=== PATIENT | female | born 1990 | race American Indian/Alaskan Native ===

== ENCOUNTER 2016-08-28 19:15 | Emergency (ER) | payer MEDICAID, OTHER ==
[2016-08-28 19:28] VITALS: BP 107/67
[2016-08-28] MEDS ORDERED: diphenhydrAMINE 50 MG Cap PO ONE (19:45)
--- NOTE | 2016-08-28 19:50 | EDM.PDOC ---
ED HPI GENERAL MEDICAL PROBLEM - General Chief Complaint: Allergic Reaction Stated Complaint: ALLERGIC REACTION Time Seen by Provider: 08/28/16 19:45 Source of Information: Reports: Patient History Limitations: Reports: No Limitations - History of Present Illness INITIAL COMMENTS - FREE TEXT/NARRATIVE: states rash started few days ago. 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 had this problem before when she was caring for a sick horse. now she is worried about scabies. - Related Data Allergies Allergy/AdvReac Type Severity Reaction Status Date / Time No Known Allergies Allergy Verified 08/28/16 19:29 Home Meds: Home Meds . 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 ED EXAM GENERAL NO PERIP PULSE - Physical Exam Exam: See Below Exam Limited By: No Limitations General Appearance: Alert, WD/WN, Mild Distress, Other (crying & itching) Ears: Hearing Grossly Normal Throat/Mouth: Normal Voice, No Airway Compromise Head: Atraumatic Neck: Non-Tender, Full Range of Motion Respiratory/Chest: No Respiratory Distress Cardiovascular: Regular Rate, Rhythm GI/Abdominal: Soft, Non-Tender Neurological: Alert, Oriented, Normal Cognition, No Motor/Sensory Deficits, Confused Psychiatric: Tearful Skin Exam: Rash Lymphatic: No Adenopathy Course - Vital Signs Last Recorded V/S: Last Vital Signs Temp 36.7 C 08/28/16 19:28 Pulse 98 08/28/16 19:28 Resp 20 08/28/16 19:28 BP 107/67 08/28/16 19:28 Pulse Ox 99 08/28/16 19:28 - Orders/Labs/Meds Orders: Active Orders 24 hr Category Date Time Status diphenhydrAMINE [Benadryl] Med 08/28/16 19:45 Once 50 mg PO ONETIME ONE Departure - Departure Time of Disposition: 19:48 Disposition: Home, Self-Care 01 Condition: Good Clinical Impression: Rash - Discharge Information Instructions: Scabies, Adult Forms: ED Department Discharge Additional Instructions: 1) don't scratch too much 2) take benadryl 3 times daily for itchy rash 3) follow up at clinic for possible DERMATOLOGY REFERRAL rx given; elemite cream x 1 tube - My Orders Last 24 Hours: My Active Orders 08/28/16 19:45 diphenhydrAMINE [Benadryl] 50 mg PO ONETIME ONE - Assessment/Plan Last 24 Hours: My Active Orders 08/28/16 19:45 diphenhydrAMINE [Benadryl] 50 mg PO ONETIME ONE
== END 2016-08-28 20:03 | disposition home or self-care (01) ==
LOC: DL.ED 19:15
DX: R21 Rash and other nonspecific skin eruption (principal); F17.210 Nicotine dependence, cigarettes, uncomplicated
CPT/HCPCS: 99282; Q0163; 99283

== ENCOUNTER 2017-04-26 06:02 | Inpatient (IN) | payer MEDICAID, OTHER ==
[~2017-04-26 06:02] MED LIST: Acetaminophen 325 MG Tab PO PRN; Carboprost Tromethamine 250 MCG/1 ML Amp IM ONE; Citric Acid/Sodium Citrate Solution 30 ML Cup PO ONE; Methylergonovine 0.2 MG/1 ML Amp IM PRN; Misoprostol 400 MCG (4 X 100 MCG TAB) RECTAL PRN; Naloxone 2 MG/2 ML Syringe IVPUSH PRN; Ondansetron 4 MG/2 ML SDV IV PRN; Oxytocin/Normal Saline 30 UNIT/500 ML BAG IV SCH; Tranexamic Acid 1,000 MG in Sodium Chloride 0.9% 100 ML IV PRN; ceFAZolin 2 GM in Premix Bag 1 BAG IV ONE; diphenhydrAMINE 50 MG/ML SDV IVPUSH PRN; ePHEDrine 50 MG/ML SDV IVPUSH PRN
[2017-04-26] MEDS: Lactated Ringers 1,000 ML IV SCH ×4 (06:30→22:03)
[2017-04-26] MEDS ORDERED: Oxytocin/Normal Saline 60 UNIT/1,000 ML BAG ONE (07:31)
[2017-04-26] MEDS: Simethicone 80 MG Tab.Chew PO SCH ×5 (07:56→21:02)
--- NOTE | 2017-04-26 09:27 | OBOUT ---
DATE: 04/26/2017 DATE AND TIME OF NST: Date: 04/26/2017. Time: 0645 hours 0705 hours. REASON FOR NST: 1. Intrauterine at 39+ weeks. 2. Previous , requests repeat low transverse . 3. Later care. 4. Chronic hepatitis C, second . 5. History of drug abuse. NST INTERPRETATION: During this time period, heart tone baseline is approximately 120 to 130, and there are at least two 15 x 15 beat per minute accelerations, making this strip reactive and reassuring. Tocometer reveals no evidence of contractions. The patient has been feeling occasional contraction. ASSESSMENT: 1. Nonstress test, reactive and reassuring. 2. Tocometer without contractions, but the patient has been feeling some occasionally. PLAN: Please see H and P which was updated and done through [employer]. Review of systems were reviewed at that time and was felt to be noncontributory as well as records called for reviewed and supplemented by patient history. We will proceed to the OR as soon as crew is ready and available. Changes include now that the OR had some availability we were able to do her earlier in terms of time line. [facility] /[id number]
--- NOTE | 2017-04-26 11:23 | OR ---
DATE: 04/26/2017 PREOPERATIVE DIAGNOSES: 1. Intrauterine at 39 and 4/7 weeks, by 19 and 4/7 week ultrasound. 2. Previous x1, request repeat low transverse . 3. Late care. 4. Group B Streptococcus negative. 5. History of hepatitis C positive status. 6. History of drug abuse in the past. 7. Anemia of with hemoglobin 10.6 upon admission. 8. G2, P1-0-0-1. POSTOPERATIVE DIAGNOSES: 1. Intrauterine at 39 and 4/7 weeks, by 19 and 4/7 week ultrasound, delivered. 2. Previous x1, request repeat low transverse . 3. Late care. 4. Group B Streptococcus negative. 5. History of hepatitis C positive status. 6. History of drug abuse in the past. 7. Anemia of with hemoglobin 10.6 upon admission. 8. G2, P1-0-0-1. 9. Nuchal cord x1 reduced bluntly with delivery. PROCEDURE PERFORMED: NST followed by repeat low transverse . BOOM STICK WORKER: Stacie Griffith MD. ANESTHESIA: Spinal. ESTIMATED BLOOD LOSS: 650 mL. IV FLUIDS: 1200 mL. URINE OUTPUT: Clear yellow. Please see VERTICAL MILL OPERATOR notes for amounts. START: 08:45. UTERINE INCISION: 08:48. DELIVERY: 08:48. STOP: 09:00. FINDINGS: Male, scores 9 and 9, weight pending. DESCRIPTION OF PROCEDURE IN DETAIL: After proper consent was obtained, the patient was brought to the operating room, where spinal anesthetic was administered. A Brunner was placed in preop under sterile conditions. Abdomen was prepped and draped in the normal sterile fashion with the patient placed in supine position with left lateral tilt. A skin incision was then made over lower abdomen in transverse Pfannenstiel-type fashion over previous scar and this was carried down the fascia and scored in midline. Subcutaneous tissue was raked laterally with George retractor, and fascial incision was then extended in transverse fashion using curved Honeycutt's. Manohar clamps x2 were used to grasp the superior aspect of the fascia, and rectus muscles were dissected from the fascia using sharp and blunt technique. In a similar fashion, Manohar clamps x2 were used to grasp the inferior portion of the incision, and rectus and pyramidalis muscles were dissected from the fascia using sharp and blunt technique. Rectus muscles were in the midline with blunt technique. Abdominal cavity was bluntly entered in blunt technique. Incision was extended superiorly and inferiorly in blunt technique. Carlitos O large retractor was then introduced and used. Vesicouterine peritoneum was identified and incised in a transverse fashion with Metzenbaum scissors, and bladder flap was made digitally. A curvilinear incision was made on the lower uterine segment at 08:48. Uterus was then entered sharply. Clear fluid returned. The uterine incision was then extended in transverse fashion using blunt technique. vertex was then delivered through the incision followed by rest of the with minimal difficulty. Nuchal cord x1 was noted and reduced bluntly with delivery. Mouth and nares were suctioned on the patient's lap. Cord was doubly clamped cut and the was brought over to [place] Team. Then, approximately 10 mL cord blood was obtained for labs. Placenta was then delivered with gentle cord traction and fundal massage. Uterine cavity was cleared of all blood clots and debris with lap sponge. Caballero clamps were used to grasp the uterine incision. This was closed in a running locked fashion and tied at lateral margins with 1-0 Vicryl. First inspection of the uterine incision revealed hemostasis. There was some anterior portions of the uterus with abrasions with minimal bleeding, electrocautery was used for hemostasis over this area, and this area was noted to be hemostatic. Carlitos O retractor was then removed, and paracolic gutters were cleared of all blood clots and debris with lap sponge. Anterior cul-de-sac was then irrigated copiously, and all blood clots and debris removed. Second and final inspection of the uterine incision and anterior cul-de-sac as well as anterior uterus revealed hemostasis. Rectus muscles were then reapproximated in midline with [id number] stitch using 1-0 Vicryl. Subfascial tissue was found to be hemostatic. Fascia was closed in a running locked fashion, tied at lateral margin with 0 looped PDS. Subcutaneous tissue was irrigated copiously, hemostasis reassured, skin was reapproximated with medium marlene. Sterile Aquacel dressing was applied. Uterine fundus was firm and massaged at the conclusion of the case -1 below umbilicus. No immediate complications were noted. Sponge, lap, and needle counts were correct. The patient received 2 g of Ancef preoperatively, Pitocin per protocol, and will receive Toradol at the conclusion of the case for pain control. Mother and are currently stable at the time of dictation. [facility] /[id number]
[2017-04-26] MEDS ORDERED: Oxytocin/Normal Saline 30 UNIT/500 ML BAG IV ONE (11:36)
[2017-04-26] MEDS: Ketorolac 30 MG/ML SDV IVPUSH SCH ×2 (13:56→20:18)
[2017-04-26] MEDS ORDERED: fentaNYL 100 MCG/2 ML SDV IV ONE (14:27)
[2017-04-26] MEDS ORDERED: Lactated Ringers 1,000 ML IV ONE (14:27)
[2017-04-26] MEDS ORDERED: Dexamethasone 4 MG/ML SDV IV ONE (14:27)
[2017-04-26] MEDS ORDERED: Ketorolac 30 MG/ML SDV IVPUSH ONE (14:27)
[2017-04-26] MEDS ORDERED: Morphine PF 1 MG/ML Amp ITHECAL ONE (14:27)
[2017-04-26] MEDS ORDERED: Propofol 200 MG/20 ML SDV IV ONE (14:27)
[2017-04-26] MEDS: Nicotine 21 MG/24 Hr Patch TRDERM SCH (14:46)
[2017-04-26] MEDS: Acetaminophen/oxyCODONE 325-5 MG Tab PO PRN ×2 (21:11→22:46)
[2017-04-26] MEDS: Docusate Sodium 100 MG Cap PO PRN (21:11)
[2017-04-27] MEDS: Ketorolac 30 MG/ML SDV IVPUSH SCH (02:06)
[2017-04-27] MEDS: Acetaminophen/oxyCODONE 325-5 MG Tab PO PRN ×5 (03:43→19:59)
[2017-04-27] MEDS: Docusate Sodium 100 MG Cap PO PRN ×2 (08:27→20:00)
[2017-04-27] MEDS: Nicotine 21 MG/24 Hr Patch TRDERM SCH (08:33)
[2017-04-27] MEDS: Simethicone 80 MG Tab.Chew PO SCH ×4 (09:17→20:00)
--- NOTE | 2017-04-27 09:24 | PN ---
DATE: 04/27/2017 Postoperative day #1, status post repeat low transverse . SUBJECTIVE: The patient is tolerating p.o.'s, ambulating. Brunner has just been removed. She has been passing gas. No other immediate concerns are noted. Pain is under control. OBJECTIVE: Vital Signs: Temperature 99, heart rate is 84, blood pressure 102/59, and respiratory rate is 20. Lungs: Clear to auscultation bilaterally. Heart: S1 and S2. Regular rate and rhythm. Pelvic: Firm uterus -1 below umbilicus. Aquacel dressing appears dry and intact. Extremities: No peripheral edema. No calf pain. LABORATORY DATA: White cell count 14, hemoglobin 9.4 compared to predelivery hemoglobin of 10.6, and platelets of 216. ASSESSMENT: Postoperative day #1, status post repeat low transverse . Seems to be doing well. We will continue to follow clinically and closely. There is a possibility she may be discharged home tomorrow, most likely in the afternoon versus the next day, and we will follow closely at this point in time. Plans were discussed with her. She understands and agrees with the above treatment plan. [facility] /[id number]
[2017-04-27] MEDS: Ibuprofen 800 MG Tab PO PRN ×2 (12:11→20:00)
[2017-04-28] MEDS: Acetaminophen/oxyCODONE 325-5 MG Tab PO PRN ×4 (00:07→11:57)
[2017-04-28] MEDS: Ibuprofen 800 MG Tab PO PRN ×2 (03:52→11:57)
[2017-04-28] MEDS: Docusate Sodium 100 MG Cap PO PRN (07:56)
[2017-04-28 08:23] VITALS: BP 114/70
[2017-04-28] MEDS: Simethicone 80 MG Tab.Chew PO SCH (08:36)
[2017-04-28] MEDS: Nicotine 21 MG/24 Hr Patch TRDERM SCH ×2 (08:36→09:14)
--- NOTE | 2017-05-01 09:44 | DISCH ---
DATE: 04/28/2017 ADMITTING DIAGNOSES: 1. Intrauterine at 39-4/7 weeks confirmed by 19-4/7 weeks' ultrasound. 2. Previous section x1, request repeat low transverse section. 3. Late care. 4. Group B Streptococcus negative. 5. History of drug abuse with negative drug screens during this . 6. Hepatitis C positive status. 7. 2, para 1-0-0-1. 8. Maternal anemia of with hemoglobin 10.6 upon admit. DISCHARGE DIAGNOSES: 1. Intrauterine at 39-4/7 weeks confirmed by 19-4/7 weeks' ultrasound, delivered. 2. Previous section x1, request repeat low transverse section. 3. Late care. 4. Group B Streptococcus negative. 5. History of drug abuse with negative drug screens during this . 6. Hepatitis C positive status. 7. 2, para 1-0-0-1. 8. Maternal anemia of with hemoglobin 10.6 upon admit. 9. Nuchal cord x1 reduced bluntly at delivery. PROCEDURE PERFORMED: NST followed by repeat low transverse . Procedure was performed by Harsha Pyle MD HISTORY OF PRESENT ILLNESS: Please see H and P. SUMMARY OF HOSPITAL COURSE: The patient was admitted on the above date with the above diagnoses and underwent elective repeat low transverse under spinal with an EBL 650 mL yielding a male with scores of 9 and 9, weighing 7 pounds 4 ounces (3315 g). Postoperative day #1, please see progress note. Postoperative day #2, date of discharge, the patient was tolerating POs, ambulating, passing flatus, and requesting discharge. DISCHARGE EVALUATION: Vital Signs: Temperature 98.9, heart rate 96, blood pressure 114/70, and respiratory rate 16. Lungs: Clear to auscultation bilaterally. Heart: S1 and S2. Regular rate and rhythm. Abdomen: Firm uterus at the umbilicus. Aquacel dressing is dry and intact. Extremities: Trace pedal edema. No calf pain. LABORATORY DATA: Postop day #1, hemoglobin was 9.4 compared to predelivery hemoglobin 10.6. CONDITION ON DISCHARGE COMPARED TO CONDITION ON ADMISSION: Improved. DISCHARGE INSTRUCTIONS: 1. Diet. As tolerated. 2. Activity: No lifting more than 20 pounds, no sit-ups, straining, and pelvic rest for the next 6 weeks with immediate return to fertility discussed with the patient. 3. ReasonS to return or go to the emergency room were discussed with the patient in detail including, but not limited to, temperature greater than 100.4, foul-smelling discharge, red hot tender breasts, or increased vaginal bleeding. DISCHARGE MEDICATIONS: 1. [id number] Tylenol or ibuprofen for pain. 2. Iron sulfate 325 mg b.i.d. x6 weeks. 3. vitamins x6 weeks. 4. Percocet 5/325 mg 1 to 2 q.6 hours p.r.n., #30, no refills. Discussed the use of this medications, adverse and wanted effects, as well as precautions with driving. FOLLOWUP: Follow up on 05/01/2017, in the clinic for staple removal as well as with her baby. I did discuss in the interim the reasons to return or go to the emergency room in regard to her baby. She understands and agrees with the above treatment plan. [facility] /[id number]
== END 2017-04-28 12:38 | disposition home or self-care (01) | DRG 765 ==
LOC: DL.MS 06:02 → EEVIPCON 06:02 → DL.MS 08:48 → OBSVTOIN 08:48
PROVIDERS: ADMIT Family Medicine; ATTEND Family Medicine
PROC: 4A0HXCZ Measurement of Products of Conception, Cardiac Rate, External Approach (ICD-10-PCS; principal; 2017-04-26)
PROC: 10D00Z1 Extraction of Products of Conception, Low, Open Approach (ICD-10-PCS; 2017-04-26)
DX: O98.413 Viral hepatitis complicating pregnancy, third trimester (principal); O34.211 Maternal care for low transverse scar from previous cesarean delivery; O98.42 Viral hepatitis complicating childbirth; B19.20 Unspecified viral hepatitis C without hepatic coma; O99.02 Anemia complicating childbirth; O69.1XX0 Labor and delivery complicated by cord around neck, with compression, not applicable or unspecified; O09.33 Supervision of pregnancy with insufficient antenatal care, third trimester; Z37.0 Single live birth; Z3A.39 39 weeks gestation of pregnancy
CPT/HCPCS: 01961; 36415; 80305; 85027; 86850; 86900; 86901; A9270-GY; J0690; J1100; J1200; J1885; J2274; J2590; J2704; J3010; J7120

== ENCOUNTER 2017-09-17 08:53 | Emergency (ER) | payer MEDICAID ==
--- NOTE | 2017-09-17 09:27 | EDM.PDOC ---
"ED HPI GENERAL MEDICAL PROBLEM - General Chief Complaint: Trauma Stated Complaint: [id number] FELL AND HURT RIBS AND LEFT LEG Time Seen by Provider: 09/17/17 09:27 Source of Information: Reports: Patient, Old Records, RN, RN Notes Reviewed History Limitations: Reports: No Limitations - History of Present Illness INITIAL COMMENTS - FREE TEXT/NARRATIVE: Pt arrives from home by POV with c/o head injury, and left upper chest wall pain , with multiple bruises, and left knee injury sustained yesterday morning at approx. 8:00AM when she was thrown off of her horse. Pt states she was knocked unconscious for about a minute or so, and was confused and drowsy afterward. Her family helped her into the house and into bed and she slept through until this morning. Pt admits to neck pain, headache, and nausea. Pt also reports that she has had Sx's of UTI for several days. Onset: Sudden Onset Date: 09/16/17 Duration: Constant Location: Reports: Head, Neck, Chest, Abdomen, Back, Lower Extremity, Left Quality: Reports: Ache, Throbbing Severity: Severe Improves with: Reports: Immobilization, Rest Worsens with: Reports: Breathing, Movement Associated Symptoms: Reports: No Other Symptoms - Related Data Allergies Allergy/AdvReac Type Severity Reaction Status Date / Time No Known Allergies Allergy Verified 08/28/16 19:29 Home Meds: Home Meds . [No Known Home Meds] 08/28/16 [History] Past Medical History Respiratory History: Reports: Asthma Gastrointestinal History: Reports: GERD Genitourinary History: Reports: UTI, Recurrent [employer] History: Reports: Polycystic Ovaries, Musculoskeletal History: Reports: Back Pain, Chronic Psychiatric History: Reports: Depression, Suicide Attempt Hematologic History: Reports: Anemia, Other (See Below) Other Hematologic History: + hep C - Infectious Disease History Infectious Disease History: Reports: Hepatitis C - Past Surgical History HEENT Surgical History: Reports: Oral Surgery Female Surgical History: Reports: Section Social & Family History - Family History Family Medical History: Noncontributory - Tobacco Use Smoking Status *Q: Former Smoker - Caffeine Use Caffeine Use: Reports: Soda - Alcohol Use Alcohol Use History: No - Recreational Drug Use Recreational Drug Use: Yes Drug Use in Last 12 Months: Yes Recreational Drug Use Frequency: Patient Refuses To Answer - Living Situation & Occupation Living situation: Reports: with Family ED ROS GENERAL - Review of Systems Review Of Systems: ROS reveals no pertinent complaints other than HPI. ED EXAM, GENERAL - Physical Exam Exam: See Below Exam Limited By: No Limitations General Appearance: Alert, WD/WN, No Apparent Distress Eye Exam: Bilateral Eye: EOMI, Normal Fundi, Normal Inspection, PERRL Ears: Normal External Exam, Normal Canal, Hearing Grossly Normal, Normal TMs, Other (no hemotympanum) Nose: Normal Inspection, Normal Mucosa, No Blood Throat/Mouth: Normal Inspection, Normal Lips, Normal Teeth, Normal Gums, Normal Oropharynx, Normal Voice, No Airway Compromise Neck: Limited Range of Motion (due to pain after c-collar removed), Tender Lateral (left base), Other (C-collar placed by fire lookout. C-spine cleared by CT scan. C-collar removed by me at 1145HRS.). No: Carotid Bruit, Lymphadenopathy ( L), Lymphadenopathy (R) Respiratory/Chest: No Respiratory Distress, Lungs Clear, Normal Breath Sounds, No Accessory Muscle Use, Other (tender to palpation at left upper anterior chest wall) Cardiovascular: Normal Peripheral Pulses, Regular Rate, Rhythm, No Edema, No Gallop, No JVD, No Murmur, No Rub Peripheral Pulses: 3+: Radial (L), Radial (R), Posterior Tibial (L), Posterior Tibial (R), Dorsalis Pedis (L), Dorsalis Pedis (R) GI/Abdominal: Normal Bowel Sounds, Soft, No Distention, No Abnormal Bruit, No Mass, Pelvis Stable, Tender (LUQ abdomen, no peritoneal signs). No: Guarding, Rigid, Rebound (Female) Exam: Deferred Rectal (Female) Exam: Deferred Back Exam: Decreased Range of Motion, Muscle Spasm (T/L spine regions), Paraspinal Tenderness. No: CVA Tenderness (L), CVA Tenderness (R), Vertebral Tenderness Extremities: No Pedal Edema, Normal Capillary Refill, Joint Swelling (left knee with bruising and swelling, decreased ROM due to pain) Neurological: Alert, Oriented, CN II-XII Intact, Normal Cognition, No Motor/ Sensory Deficits Psychiatric: Normal Affect, Normal Mood Skin Exam: Warm, Dry, No Rash, Other (multiple scattered bruises to B/L upper and lower extremities) Course - Vital Signs Last Recorded V/S: Last Vital Signs Temp 37.3 C 09/17/17 09:28 Pulse 99 09/17/17 09:28 Resp 18 09/17/17 09:28 BP 125/83 09/17/17 09:28 Pulse Ox 97 09/17/17 09:28 - Orders/Labs/Meds Orders: Active Orders 24 hr Category Date Time Status Peripheral IV Care [RC] . DIRECTED Care 09/17/17 09:42 Active CHLAMYDIA AND GONORRHEA BY TMA Routine Lab 09/17/17 10:20 Received CULTURE URINE [RM] Stat Lab 09/17/17 10:20 Received DRUG SCREEN URINE BIORAD [URCHEM] Stat Lab 09/17/17 10:20 Ordered HCG QUALITATIVE,URINE [URCHEM] Stat Lab 09/17/17 10:20 Ordered UA W/MICROSCOPIC [URIN] Stat Lab 09/17/17 10:20 Ordered Sodium Chloride 0.9% [Saline Flush] Med 09/17/17 09:41 Active 10 ml FLUSH ASDIRECTED PRN Peripheral IV Insertion Adult [OM.PC] Stat Oth 09/17/17 09:42 Ordered Medication Orders Sodium Chloride (Saline Flush) 10 ml FLUSH ASDIRECTED PRN PRN Reason: Keep Vein Open Last Admin: 09/17/17 11:40 Dose: 10 ml Labs: Laboratory Tests 09/17/17 09/17/17 09/17/17 Range/Units 09:49 09:49 10:20 WBC 4.8 L (5.0-10.0) 10^3/uL RBC 4.51 (4.2-5.4) 10^6/uL Hgb 13.8 D (12.0-16.0) g/dL Hct 42.8 (37.0-47.0) % MCV 94.9 D (80-100) fL MCH 30.6 (27.0-34.0) pg MCHC 32.2 L (33.0-35.0) g/dL Plt Count 122 L D (150-450) 10^3/uL Neut % (Auto) 48.0 (42.2-75.2) % Lymph % (Auto) 29.6 (20.5-50.1) % Mclennan % (Auto) 19.5 H (2-8) % Eos % (Auto) 2.7 (1.0-3.0) % Baso % (Auto) 0.2 (0.0-1.0) % Sodium 139 (135-145) mmol/L Potassium 3.6 (3.6-5.0) mmol/L Chloride 102 (101-111) mmol/L Carbon Dioxide 28.0 (21.0-31.0) mmol/L Anion Gap 12.6 BUN 12 (7-18) mg/dL Creatinine 0.7 (0.6-1.3) mg/dL Est Cr Clr Drug Dosing 99.41 mL/min Estimated GFR (MDRD) > 60 BUN/Creatinine Ratio 17.14 Glucose 93 (74-105) mg/dL Calcium 8.9 (8.4-10.2) mg/dl Total Bilirubin 1.2 H (0.2-1.0) mg/dL AST 82 H (10-42) IU/L ALT 95 H (10-60) IU/L Alkaline Phosphatase 55 (42-121) IU/L Total Protein 7.7 (6.7-8.2) g/dl Albumin 3.9 (3.2-5.5) g/dl Globulin 3.8 Albumin/Globulin Ratio 1.03 Amylase 36 (28-100) U/L Lipase 25 (22-51) U/L Urine Color Dark yellow (YELLOW) Urine Appearance Cloudy (CLEAR) Urine pH 6.0 (5.0-9.0) Ur Specific [place] >= 1.030 (1.005-1.030) Urine Protein 100 H (NEGATIVE) Urine Glucose (UA) Negative (NEGATIVE) Urine Ketones 15 H (NEGATIVE) Urine Occult Blood Negative (NEGATIVE) Urine Nitrite Positive H (NEGATIVE) Urine Bilirubin Small H (NEGATIVE) Urine Urobilinogen 1.0 (0.2-1.0) mg/dL Ur Leukocyte Esterase Trace H (NEGATIVE) Urine RBC 0-5 /HPF Urine WBC 10-20 H (0-5/HPF) /HPF Ur Epithelial Cells Few /HPF Amorphous Sediment Few (0/HPF) /HPF Urine Bacteria Many H (0-FEW/HPF) /HPF Urine Mucus Few H /LPF Urine HCG, Qual Urine Opiates Screen (NEGATIVE) Ur Oxycodone Screen (NEGATIVE) Urine Methadone Screen (NEGATIVE) Ur Barbiturates Screen (NEGATIVE) U Tricyclic Antidepress (NEGATIVE) Ur Phencyclidine Scrn (NEGATIVE) Ur Amphetamine Screen (NEGATIVE) U Methamphetamines Scrn (NEGATIVE) Urine MDMA Screen (NEGATIVE) U Benzodiazepines Scrn (NEGATIVE) Urine Cocaine Screen (NEGATIVE) U Marijuana (THC) Screen (NEGATIVE) Ethyl Alcohol < 5 mg/dL 09/17/17 09/17/17 Range/Units 10:20 10:20 WBC (5.0-10.0) 10^3/uL RBC (4.2-5.4) 10^6/uL Hgb (12.0-16.0) g/dL Hct (37.0-47.0) % MCV (80-100) fL MCH (27.0-34.0) pg MCHC (33.0-35.0) g/dL Plt Count (150-450) 10^3/uL Neut % (Auto) (42.2-75.2) % Lymph % (Auto) (20.5-50.1) % Mclennan % (Auto) (2-8) % Eos % (Auto) (1.0-3.0) % Baso % (Auto) (0.0-1.0) % Sodium (135-145) mmol/L Potassium (3.6-5.0) mmol/L Chloride (101-111) mmol/L Carbon Dioxide (21.0-31.0) mmol/L Anion Gap BUN (7-18) mg/dL Creatinine (0.6-1.3) mg/dL Est Cr Clr Drug Dosing mL/min Estimated GFR (MDRD) BUN/Creatinine Ratio Glucose (74-105) mg/dL Calcium (8.4-10.2) mg/dl Total Bilirubin (0.2-1.0) mg/dL AST (10-42) IU/L ALT (10-60) IU/L Alkaline Phosphatase (42-121) IU/L Total Protein (6.7-8.2) g/dl Albumin (3.2-5.5) g/dl Globulin Albumin/Globulin Ratio Amylase (28-100) U/L Lipase (22-51) U/L Urine Color (YELLOW) Urine Appearance (CLEAR) Urine pH (5.0-9.0) Ur Specific [place] (1.005-1.030) Urine Protein (NEGATIVE) Urine Glucose (UA) (NEGATIVE) Urine Ketones (NEGATIVE) Urine Occult Blood (NEGATIVE) Urine Nitrite (NEGATIVE) Urine Bilirubin (NEGATIVE) Urine Urobilinogen (0.2-1.0) mg/dL Ur Leukocyte Esterase (NEGATIVE) Urine RBC /HPF Urine WBC (0-5/HPF) /HPF Ur Epithelial Cells /HPF Amorphous Sediment (0/HPF) /HPF Urine Bacteria (0-FEW/HPF) /HPF Urine Mucus /LPF Urine HCG, Qual Negative Urine Opiates Screen Negative (NEGATIVE) Ur Oxycodone Screen Negative (NEGATIVE) Urine Methadone Screen Negative (NEGATIVE) Ur Barbiturates Screen Negative (NEGATIVE) U Tricyclic Antidepress Negative (NEGATIVE) Ur Phencyclidine Scrn Negative (NEGATIVE) Ur Amphetamine Screen Positive H (NEGATIVE) U Methamphetamines Scrn Positive H (NEGATIVE) Urine MDMA Screen Positive H (NEGATIVE) U Benzodiazepines Scrn Negative (NEGATIVE) Urine Cocaine Screen Negative (NEGATIVE) U Marijuana (THC) Screen Positive H (NEGATIVE) Ethyl Alcohol mg/dL Meds: Medications Generic Name Dose Route Start Last Admin Trade Name Freq PRN Reason Stop Dose Admin Sodium Chloride 10 ml 09/17/17 09:41 09/17/17 11:40 Saline Flush FLUSH 10 ml ASDIRECTED PRN Administration Keep Vein Open Discontinued Medications Generic Name Dose Route Start Last Admin Trade Name Freq PRN Reason Stop Dose Admin Bacitracin 1 dose 09/17/17 09:43 09/17/17 10:07 Bacitracin Oint 1 Gm TOP 09/17/17 09:44 1 dose ONETIME ONE Administration Ceftriaxone Sodium 1 gm 09/17/17 11:41 09/17/17 11:55 Rocephin IVPUSH 09/17/17 11:42 1 gm ONETIME ONE Administration Hydromorphone HCl 1 mg 09/17/17 09:43 09/17/17 10:03 Dilaudid IVPUSH 09/17/17 09:44 1 mg ONETIME ONE Administration Sodium Chloride 1,000 mls @ 999 mls/hr 09/17/17 09:42 09/17/17 10:00 Normal Saline IV 09/17/17 10:42 999 mls/hr .BOLUS ONE Administration Iopamidol 100 ml 09/17/17 09:42 09/17/17 11:09 Isovue-300 (61%) IVPUSH 09/17/17 09:43 100 ml ONETIME ONE Administration Ondansetron HCl 4 mg 09/17/17 09:42 09/17/17 10:05 Zofran IV 09/17/17 09:43 4 mg ONETIME ONE Administration - Radiology Interpretation Free Text/Narrative:: [facility] Final Radiology Report Call: [phone] assistance Online chat: [email or web address] Name: MAURICIO MEDINA Age: 27Years F Date: 09/17/2017 SSN: -- : 1990 Study: XR KNEE 3 VIEWS Requesting Physician: LEONARD PIÑA Images: 3 Addl Studies: Provided Clinical History: Contrast: Contrast Medium: Contrast Amount: Contrast Method: CONFIDENTIALITY STATEMENT This report is intended only for use by the referring physician, and only in accordance with law. If you received this in error, call [phone]. Page 1 of 1 EXAM: XR Left Knee, 3 views EXAM DATE/TIME: 09/17/2017 10:29 AM CLINICAL HISTORY: The patient is 27 years old and is female; Injury or trauma; Injury Thrown from horse; Initial encounter; Blunt trauma; Knee; Left TECHNIQUE: Three views of the left knee. COMPARISON: No relevant prior studies available. FINDINGS: Bones/joints: Unremarkable. No acute fracture. No dislocation. Soft tissues: There is mild soft tissue swelling anteriorly. The suprapatellar soft tissues appear grossly unremarkable. IMPRESSION: Mild anterior soft tissue swelling without acute fracture or dislocation identified. Thank you for allowing us to participate in the care of your patient. Dictated and Authenticated by: Jasper Jackson MD 09/17/2017 11:13 AM [facility] Final Radiology Report Call: [phone] assistance Online chat: [email or web address] Name: MAURICIO MEDINA Age: 27Years F Date: 09/17/2017 SSN: -- : 1990 Study: CT SPINE CERVICAL WO Requesting Physician: LEONARD PIÑA Images: 203 Addl Studies: Provided Clinical History: Contrast: Without Contrast Medium: Contrast Amount: Contrast Method: Page 1 of 2 EXAM: CT Cervical Spine Without Intravenous Contrast EXAM DATE/TIME: 09/17/2017 10:11 AM CLINICAL HISTORY: The patient is 27 years old and is female; Injury or trauma; Injury Thrown from horse; Initial encounter; Blunt trauma TECHNIQUE: Axial computed tomography images of the cervical spine without intravenous contrast. All CT scans at this facility use at least one of these dose optimization techniques: automated exposure control; mA and/or kV adjustment per patient size (includes targeted exams where dose is matched to clinical indication); or iterative reconstruction. Coronal and sagittal reformatted images were created and reviewed. COMPARISON: No relevant prior studies available. FINDINGS: Vertebral body heights are intact. Alignment is maintained. No acute fracture of the cervical spine is identified. There is a nondisplaced fracture of the left first rib medially. The prevertebral soft tissues are not significantly swollen. The visualized lung apices are essentially clear, and no apical pneumothorax is identified. No significant posterior disc displacements are evident. CT is not optimal for the evaluation of the discs, neural foramina or spinal canal or cord. IMPRESSION: MAURICIO MEDINA | Final Radiology Report CONFIDENTIALITY STATEMENT This report is intended only for use by the referring physician, and only in accordance with law. If you received this in error, call [phone]. Page 2 of 2 1. No acute fracture or dislocation of the cervical spine identified. 2. Nondisplaced fracture of the left first rib medially. Thank you for allowing us to participate in the care of your patient. Dictated and Authenticated by: Jasper Jackson MD 09/17/2017 11:16 AM [facility] Final Radiology Report Call: [phone] assistance Online chat: [email or web address] Name: MAURICIO MEDINA Age: 27Years F Date: 09/17/2017 SSN: -- : 1990 Study: CT HEAD WO Requesting Physician: LEONARD PIÑA Images: 66 Addl Studies: Provided Clinical History: Contrast: Without Contrast Medium: Contrast Amount: Contrast Method: Page 1 of 2 EXAM: CT Head Without Intravenous Contrast EXAM DATE/TIME: 09/17/2017 10:11 AM CLINICAL HISTORY: The patient is 27 years old and is female; Injury or trauma; Injury Thrown from horse TECHNIQUE: Axial computed tomography images of the head/brain without intravenous contrast. All CT scans at this facility use at least one of these dose optimization techniques: automated exposure control; mA and/or kV adjustment per patient size (includes targeted exams where dose is matched to clinical indication); or iterative reconstruction. COMPARISON: No relevant prior studies available. FINDINGS: Brain: Unremarkable. No hemorrhage. No significant white matter disease. No edema. Ventricles: Unremarkable. No ventriculomegaly. Bones/joints: Unremarkable. No acute fracture. Soft tissues: Unremarkable. Sinuses: Unremarkable as visualized. No acute sinusitis. Mastoid air cells: Unremarkable as visualized. No mastoid effusion. IMPRESSION: No CT evidence for acute intracranial abnormality. Thank you for allowing us to participate in the care of your patient. MAURICIO MEDINA | Final Radiology Report CONFIDENTIALITY STATEMENT This report is intended only for use by the referring physician, and only in accordance with law. If you received this in error, call [phone]. Page 2 of 2 Dictated and Authenticated by: Jasper Jackson MD 09/17/2017 11:18 AM [facility] Final Radiology Report Call: [phone] assistance Online chat: [email or web address] Name: MAURICIO MEDINA Age: 27Years F Date: 09/17/2017 SSN: -- : 1990 Study: CT CHEST W Requesting Physician: LEONARD PIÑA Images: 248 Addl Studies: [id number] - CT ABDOMEN/PELVIS W (1) Provided Clinical History: Contrast: With Contrast Medium: Isovue Contrast Amount: 100 mL Contrast Method: LAC Page 1 of 2 EXAM: CT Chest With Intravenous Contrast CT Abdomen and Pelvis With Intravenous Contrast EXAM DATE/TIME: 09/17/2017 10:08 AM CLINICAL HISTORY: The patient is 27 years old and is female; Injury or trauma; Injury Thrown from horse; Initial encounter; Blunt; Generalized; Blunt trauma (contusions or hematomas) TECHNIQUE: Axial computed tomography images of the chest, abdomen and pelvis with intravenous contrast. All CT scans at this facility use at least one of these dose optimization techniques : automated exposure control; mA and/or kV adjustment per patient size (includes targeted exams where dose is matched to clinical indication); or iterative reconstruction. Coronal and sagittal reformatted images were created and reviewed. CONTRAST: 100 mL of Isovue administered intravenously. COMPARISON: No relevant prior studies available. FINDINGS: CHEST: Lungs: There is minor dependent atelectasis bilaterally. The lungs are otherwise clear. Pleural space: Unremarkable. No significant effusion. No pneumothorax. Heart: Unremarkable. No cardiomegaly. No significant pericardial effusion. Mediastinum: No mediastinal hematoma is identified. MAURICIO MEDINA | Final Radiology Report CONFIDENTIALITY STATEMENT This report is intended only for use by the referring physician, and only in accordance with law. If you received this in error, call [phone]. Page 2 of 2 ABDOMEN: Liver: The liver is fatty in density. It appears otherwise unremarkable. Gallbladder and bile ducts: No gallstones are evident, but ultrasound would be more sensitive. No ductal dilation. Pancreas: Unremarkable. No ductal dilation. No mass. Spleen: Unremarkable. No splenomegaly. Adrenals: Unremarkable. No mass. Kidneys and ureters: The left renal vein is noted to be retroaortic. No hydronephrosis. No solid mass. Stomach and bowel: Neither the stomach nor the small bowel are significantly distended or grossly thickwalled. The large bowel is grossly unremarkable in appearance. PELVIS: Appendix: No findings to suggest acute appendicitis. Bladder: Unremarkable. No mass. Reproductive: No gross adnexal abnormality is apparent, but ultrasound would be more appropriate in this regard. CHEST, ABDOMEN and PELVIS: Intraperitoneal space: Unremarkable. No significant fluid collection. No free air. Bones/joints: There is a nondisplaced fracture of the left first rib medially. No other fracture of the visualized skeleton is identified. No dislocation. Soft tissues: Unremarkable. Vasculature: The thoracic aorta is nonaneurysmal. The abdominal aorta is nonaneurysmal. Lymph nodes: Unremarkable. No enlarged lymph nodes. IMPRESSION: 1. Nondisplaced fracture of the left first rib medially. No other evidence for acute intrathoracic, abdominal or pelvic injury. 2. Fatty liver. Thank you for allowing us to participate in the care of your patient. Dictated and Authenticated by: Jasper Jackson MD 09/17/2017 11:[address] Results Date: 09/17/17 Departure - Departure Time of Disposition: 11:32 Disposition: Home, Self-Care 01 Condition: Good Clinical Impression: Contusion, multiple sites, Polysubstance abuse, Fatty liver disease, nonalcoholic Fracture of one rib of left side Qualifiers: Encounter type: initial encounter Fracture type: closed Qualified Code(s): S22.32XA - Fracture of one rib, left side, initial encounter for closed fracture UTI (urinary tract infection) Qualifiers: Urinary tract infection type: site unspecified Hematuria presence: without hematuria Qualified Code(s): N39.0 - Urinary tract infection, site not specified Concussion with loss of consciousness <= 30 min Qualifiers: Encounter type: initial encounter Qualified Code(s): S06.0X1A - Concussion with loss of consciousness of 30 minutes or less, initial encounter - Discharge Information Instructions: Concussion, Adult, [id number], Urinary Tract Infection, Adult, [id number], Contusion, [id number], Rib Fracture, [id number], Nonalcoholic Fatty Liver Disease Diet Forms: ED Department Discharge Additional Instructions: Rx: Cipro 500mg Rx: Bactroban Ointment 2% Rx: Cyclobenzaprine 10mg *Do not drive while under the influence of this medication. May use over the counter Ibuprofen (Advil/Motrin) 200mg: Three tablets by mouth every 6 hours as needed for pain. Take with food. Concussion activity restrictions for 3 weeks: no rough, bouncing, or high impact activities, and no drug or alcohol use. Follow up in clinic in 2 to 3 days for recheck. - My Orders Last 24 Hours: My Active Orders 09/17/17 09:41 Sodium Chloride 0.9% [Saline Flush] 10 ml FLUSH ASDIRECTED PRN 09/17/17 09:42 Peripheral IV Care [RC] . DIRECTED Peripheral IV Insertion Adult [OM.PC] Stat 09/17/17 10:20 CHLAMYDIA AND GONORRHEA BY TMA Routine CULTURE URINE [RM] Stat DRUG SCREEN URINE BIORAD [URCHEM] Stat HCG QUALITATIVE,URINE [URCHEM] Stat UA W/MICROSCOPIC [URIN] Stat - Assessment/Plan Last 24 Hours: My Active Orders 09/17/17 09:41 Sodium Chloride 0.9% [Saline Flush] 10 ml FLUSH ASDIRECTED PRN 09/17/17 09:42 Peripheral IV Care [RC] . DIRECTED Peripheral IV Insertion Adult [OM.PC] Stat 09/17/17 10:20 CHLAMYDIA AND GONORRHEA BY TMA Routine CULTURE URINE [RM] Stat DRUG SCREEN URINE BIORAD [URCHEM] Stat HCG QUALITATIVE,URINE [URCHEM] Stat UA W/MICROSCOPIC [URIN] Stat"
[2017-09-17 09:38] VITALS: BP 125/83
[2017-09-17] MEDS ORDERED: Sodium Chloride 0.9% 10 ML Syringe FLUSH PRN (09:41)
[2017-09-17] MEDS ORDERED: Sodium Chloride 0.9% 1,000 ML IV ONE (09:42)
[2017-09-17] MEDS ORDERED: Ondansetron 4 MG/2 ML SDV IV ONE (09:42)
[2017-09-17] MEDS ORDERED: Iopamidol 612 MG/ML 100 ML Bottle IVPUSH ONE (09:42)
[2017-09-17] MEDS ORDERED: Bacitracin Oint 1 GM U/D Packet TOP ONE (09:43)
[2017-09-17] MEDS ORDERED: HYDROmorphone 0.5 MG/0.5 ML Syringe IVPUSH ONE (09:43)
[2017-09-17 10:19] LABS: ANION GAP 12.6; CHLORIDE,CL 102 mmol/L (101-111); SODIUM,NA 139 mmol/L (135-145)
[2017-09-17] MEDS ORDERED: cefTRIAXone 1 GM Vial IVPUSH ONE (11:41)
== END 2017-09-17 12:16 | disposition home or self-care (01) ==
LOC: DL.ED 08:53
DX: S06.0X1A Concussion with loss of consciousness of 30 minutes or less, initial encounter (principal); S22.32XA Fracture of one rib, left side, initial encounter for closed fracture; S80.02XA Contusion of left knee, initial encounter; N39.0 Urinary tract infection, site not specified; F19.10 Other psychoactive substance abuse, uncomplicated; K76.0 Fatty (change of) liver, not elsewhere classified; Z87.891 Personal history of nicotine dependence; V80.010A Animal-rider injured by fall from or being thrown from horse in noncollision accident, initial encounter
CPT/HCPCS: 36415; 70450; 71260; 72125; 73562; 74177; 80053; 80305; 81001; 81025; 82150; 83690; 85025; 87086; 87088; 87186; 87491; 87591; 96361; 96374; 96375; 99285; G0480; J0696; J1170; J2405; J7030; J7050; Q9967

== ENCOUNTER 2018-06-13 11:23 | Inpatient (IN) | payer SELFPAY ==
[2018-06-13 11:34] VITALS: BP 87/45
[2018-06-13] MEDS ORDERED: Naloxone 2 MG/2 ML Syringe ONE (11:45)
[2018-06-13] MEDS: Lactated Ringers 1,000 ML IV ONE ×2 (12:00→12:31)
[2018-06-13] MEDS ORDERED: Lactated Ringers 1,000 ML IV ONE ×2 (12:15→16:30)
[2018-06-13] MEDS ORDERED: Oxytocin/Normal Saline 60 UNIT/1,000 ML BAG ONE (12:18)
[2018-06-13] MEDS ORDERED: diphenhydrAMINE 50 MG/ML SDV IVPUSH PRN (12:29)
[2018-06-13] MEDS ORDERED: Docusate Sodium 100 MG Cap PO PRN (12:29)
[2018-06-13] MEDS ORDERED: Ondansetron 4 MG/2 ML SDV IV PRN (12:29)
[2018-06-13] MEDS ORDERED: Tranexamic Acid 1,000 MG in Sodium Chloride 0.9% 100 ML IV PRN (12:29)
[2018-06-13] MEDS ORDERED: Acetaminophen 325 MG Tab PO PRN (12:29)
[2018-06-13] MEDS ORDERED: Carboprost Tromethamine 250 MCG/1 ML Amp IM ONE (12:29)
[2018-06-13] MEDS ORDERED: ePHEDrine 50 MG/ML SDV IVPUSH PRN (12:29)
[2018-06-13] MEDS ORDERED: Ibuprofen 800 MG Tab PO PRN (12:29)
[2018-06-13] MEDS ORDERED: Methylergonovine 0.2 MG/1 ML Amp IM PRN (12:29)
[2018-06-13] MEDS ORDERED: Naloxone 2 MG/2 ML Syringe IVPUSH PRN (12:29)
[2018-06-13] MEDS ORDERED: Acetaminophen/oxyCODONE 325-5 MG Tab PO PRN ×2 (12:29)
[2018-06-13] MEDS ORDERED: ceFAZolin 2 GM in Premix Bag 1 BAG IV ONE (12:29)
[2018-06-13] MEDS ORDERED: Misoprostol 400 MCG (4 X 100 MCG TAB) RECTAL PRN (12:29)
[2018-06-13] MEDS ORDERED: Ketorolac 30 MG/ML SDV IVPUSH SCH (12:30)
[2018-06-13] MEDS ORDERED: Oxytocin/Normal Saline 30 UNIT/500 ML BAG IV SCH (12:30)
[2018-06-13] MEDS ORDERED: Lactated Ringers 1,000 ML IV SCH (12:30)
[2018-06-13] MEDS ORDERED: Betamethasone Acetate/Betamethasone Sod Phosphate 30 MG/5 ML MDV IM ONE (12:33)
[2018-06-13] MEDS ORDERED: Citric Acid/Sodium Citrate Solution 30 ML Cup PO ONE (12:33)
--- NOTE | 2018-06-13 12:49 | EDM.PDOC ---
ED HPI GENERAL MEDICAL PROBLEM - General Chief Complaint: Syncope Stated Complaint: SICK-OB Time Seen by Provider: 06/13/18 11:33 Source of Information: Reports: Patient, Provider (Dr. Pyle), RN, RN Notes Reviewed History Limitations: Reports: No Limitations - History of Present Illness INITIAL COMMENTS - FREE TEXT/NARRATIVE: Pt to ER from the clinic. Presented to the clinic today for first OB check. She has had no care prior to this. After having lab, the patient became very pale, diaphoretic, light headed. Patient brought to the ER for evaluation. Upon arrival it took 4 nurses to transfer the patient to the bed. Patient c/o back pain intermittently. States LMP was October. Pt admits to using meth 2 days ago and taking a "pain pill" yesterday. 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: Reports: Polycystic Ovaries, Musculoskeletal History: Reports: Back Pain, Chronic Neurological History: Reports: None Psychiatric History: Reports: Depression, Suicide Attempt Endocrine/Metabolic History: Reports: None Hematologic History: Reports: Anemia, Other (See Below) Other Hematologic History: + hep C Immunologic History: Reports: HIV Oncologic (Cancer) History: Reports: None Dermatologic History: Reports: Other (See Below) Other Dermatologic History: track hills all over from IV drug use - Infectious Disease History Infectious Disease History: Reports: Hepatitis C - Past Surgical History Head Surgeries/Procedures: Reports: None HEENT Surgical History: Reports: Oral Surgery Female Surgical History: Reports: Section Social & Family History - Family History Family Medical History: Noncontributory - Tobacco Use Smoking Status *Q: Current Every Day Smoker Years of Tobacco use: 10 Packs/Tins Daily: 0.5 Used Tobacco, but Quit: No - Caffeine Use Caffeine Use: Reports: Coffee, Soda - Recreational Drug Use Recreational Drug Use: Yes Drug Use in Last 12 Months: Yes Recreational Drug Type: Reports: Methamphetamine, Other (see below) Other Recreational Drug Type: hydrocodone - Living Situation & Occupation Living situation: Reports: with Family ED ROS GENERAL - Review of Systems Review Of Systems: ROS reveals no pertinent complaints other than HPI. ED EXAM - Physical Exam Exam: See Below Exam Limited By: No Limitations General Appearance: Lethargic, Moderate Distress Eye Exam: Bilateral Eye: EOMI, Normal Inspection Ears: Normal External Exam, Hearing Grossly Normal Nose: Normal Inspection Throat/Mouth: Normal Inspection, Normal Voice, No Airway Compromise Head: Atraumatic, Normocephalic Neck: Normal Inspection, Supple, Non-Tender, Full Range of Motion Respiratory/Chest: No Respiratory Distress, Lungs Clear, Normal Breath Sounds, No Accessory Muscle Use, Chest Non-Tender Cardiovascular: Normal Peripheral Pulses, Regular Rate, Rhythm, No Edema, No Gallop, No JVD, No Murmur, No Rub Rectal Exam: Deferred Back Exam: Normal Inspection, Full Range of Motion Extremities: Normal Inspection, Normal Range of Motion, Non-Tender, No Pedal Edema, Normal Capillary Refill Neurological: Alert, Oriented, CN II-XII Intact, Normal Cognition, Normal Gait, Normal Reflexes, No Motor/Sensory Deficits Psychiatric: Anxious, Tearful Skin Exam: Warm, Dry, Intact, No Rash, Pallor Lymphatic: No Adenopathy Course - Vital Signs Last Recorded V/S: Last Vital Signs Temp 97.1 F 06/13/18 11:33 Pulse 68 06/13/18 11:33 Resp 18 06/13/18 11:33 BP 87/45 L 06/13/18 11:33 Pulse Ox 100 06/13/18 11:33 - Orders/Labs/Meds Orders: Medication Orders Acetaminophen (Tylenol) 650 mg PO Q6H PRN PRN Reason: mild pain or fever Carboprost Tromethamine (Hemabate Ds) 250 mcg IM ONETIME ONE Stop: 06/13/18 12:30 Diphenhydramine HCl (Benadryl) 25 mg IVPUSH Q6H PRN PRN Reason: Itching or Nausea Docusate Sodium (Colace) 100 mg PO Q12H PRN PRN Reason: Constipation Ephedrine Sulfate (Ephedrine Sulfate) 5 mg IVPUSH SEECOMMENT PRN PRN Reason: Other Lactated Ringer's (Ringers, Lactated) 1,000 mls @ 999 mls/hr IV .BOLUS ONE Stop: 06/13/18 13:00 Last Admin: 06/13/18 12:31 Dose: 999 mls/hr Infusion: 06/13/18 12:31 Dose: 999 mls/hr Admin: 06/13/18 12:00 Dose: 999 mls/hr Lactated Ringer's (Ringers, Lactated) 1,000 mls @ 999 mls/hr IV .BOLUS ONE Stop: 06/13/18 13:15 Cefazolin Sodium/Dextrose 2 gm (/ Premix) 50 mls @ 100 mls/hr IV ONETIME ONE Stop: 06/13/18 12:58 Lactated Ringer's (Ringers, Lactated) 1,000 mls @ 125 mls/hr IV ASDIRECTED [facility] Oxytocin/Sodium Chloride (Pitocin In Ns 30 Unit/500 Ml) 30 unit in 500 mls @ 500 mls/hr IV TITRATE [facility]; Protocol Tranexamic Acid 1,000 mg/ (Sodium Chloride) 110 mls @ 660 mls/hr IV ONETIME PRN PRN Reason: Bleeding Ibuprofen (Motrin) 800 mg PO Q8H PRN PRN Reason: mild pain or fever Ketorolac Tromethamine (Toradol) 15 mg IVPUSH Q6H [facility] Stop: 06/14/18 00:31 Methylergonovine Maleate (Methergine) 0.2 mg IM ONETIME PRN PRN Reason: Excessive Vaginal Bleeding Misoprostol (Cytotec) 800 mcg RECTAL ASDIRECTED PRN PRN Reason: Excessive bleeding Naloxone HCl (Narcan) 0.1 mg IVPUSH SEECOMMENT PRN PRN Reason: Respiratory Depression Ondansetron HCl (Zofran) 4 mg IV Q4H PRN PRN Reason: Nausea/Vomiting Oxycodone/Acetaminophen (Percocet 325-5 Mg) 1 tab PO Q4H PRN PRN Reason: Pain (moderate 4-6) Oxycodone/Acetaminophen (Percocet 325-5 Mg) 2 tab PO Q4H PRN PRN Reason: Pain (moderate 4-6) Prenat Multivit/Clinical Psychologist/Iron/Folic Ac ( Plus Iron) 1 each PO DAILY [facility] Simethicone (Simethicone) 160 mg PO QID [facility] Meds: Medications Generic Name Dose Route Start Last Admin Trade Name Freq PRN Reason Stop Dose Admin Acetaminophen 650 mg 06/13/18 12:29 Tylenol PO Q6H PRN mild pain or fever Carboprost Tromethamine 250 mcg 06/13/18 12:29 Hemabate Ds IM 06/13/18 12:30 ONETIME ONE Diphenhydramine HCl 25 mg 06/13/18 12:29 Benadryl IVPUSH Q6H PRN Itching or Nausea Docusate Sodium 100 mg 06/13/18 12:29 Colace PO Q12H PRN Constipation Ephedrine Sulfate 5 mg 06/13/18 12:29 Ephedrine Sulfate IVPUSH SEECOMMENT PRN Other Lactated Ringer's 1,000 mls @ 999 mls/hr 06/13/18 12:00 06/13/18 12:31 Ringers, Lactated IV 06/13/18 13:00 999 mls/hr .BOLUS ONE Administration Lactated Ringer's 1,000 mls @ 999 mls/hr 06/13/18 12:15 Ringers, Lactated IV 06/13/18 13:15 .BOLUS ONE Cefazolin Sodium/Dextrose 2 gm 50 mls @ 100 mls/hr 06/13/18 12:29 / Premix IV 06/13/18 12:58 ONETIME ONE Lactated Ringer's 1,000 mls @ 125 mls/hr 06/13/18 12:30 Ringers, Lactated IV ASDIRECTED [facility] Oxytocin/Sodium Chloride 30 unit in 500 mls @ 500 mls/hr 06/13/18 12:30 Pitocin In Ns 30 Unit/500 Ml IV TITRATE [facility] Protocol 500 MUNITS/MIN Tranexamic Acid 1,000 mg/ 110 mls @ 660 mls/hr 06/13/18 12:29 Sodium Chloride IV ONETIME PRN Bleeding Ibuprofen 800 mg 06/13/18 12:29 Motrin PO Q8H PRN mild pain or fever Ketorolac Tromethamine 15 mg 06/13/18 12:30 Toradol IVPUSH 06/14/18 00:31 Q6H [facility] Methylergonovine Maleate 0.2 mg 06/13/18 12:29 Methergine IM ONETIME PRN Excessive Vaginal Bleeding Misoprostol 800 mcg 06/13/18 12:29 Cytotec RECTAL ASDIRECTED PRN Excessive bleeding Naloxone HCl 0.1 mg 06/13/18 12:29 Narcan IVPUSH SEECOMMENT PRN Respiratory Depression Ondansetron HCl 4 mg 06/13/18 12:29 Zofran IV Q4H PRN Nausea/Vomiting Oxycodone/Acetaminophen 1 tab 06/13/18 12:29 Percocet 325-5 Mg PO Q4H PRN Pain (moderate 4-6) Oxycodone/Acetaminophen 2 tab 06/13/18 12:29 Percocet 325-5 Mg PO Q4H PRN Pain (moderate 4-6) Prenat Multivit/Grant/Iron/Folic Ac 1 each 06/14/18 09:00 Plus Iron PO DAILY [facility] Simethicone 160 mg 06/13/18 13:00 Simethicone PO QID [facility] Discontinued Medications Generic Name Dose Route Start Last Admin Trade Name Freq PRN Reason Stop Dose Admin Betamethasone Acet/Betameth SodPhos 12 mg 06/13/18 12:33 06/13/18 12:34 Celestone Soluspan 6 Mg/Ml IM 06/13/18 12:34 12 mg ONETIME ONE Administration Citric Acid/Sodium Citrate 30 ml 06/13/18 12:33 06/13/18 12:34 Bicitra Solution PO 06/13/18 12:34 30 ml ONETIME ONE Administration Oxytocin/Sodium Chloride Confirm 06/13/18 12:18 Pitocin In Ns 30 Unit/500 Ml Administered 06/13/18 12:19 Dose 60 unit in 1,000 mls @ as directed .ROUTE .STK-MED ONE Naloxone HCl Confirm 06/13/18 11:45 06/13/18 11:48 Narcan Administered 06/13/18 11:46 0.4 mg Dose Administration 2 mg .ROUTE .STK-MED ONE - Re-Assessments/Exams Free Text/Narrative Re-Assessment/Exam: 06/13/18 12:44 OB nurses present monitoring non-stress test. Ultrasound completed in the ER. Dr. Pyle paged and present in the ER. Patient care turned over to Dr. Pyle. Departure - Departure Time of Disposition: 12:49 Disposition: Admitted As Inpatient 66 Condition: Poor, Serious Clinical Impression: IVDU (intravenous drug user) UTI (urinary tract infection) Qualifiers: Urinary tract infection type: site unspecified Hematuria presence: without hematuria Qualified Code(s): N39.0 - Urinary tract infection, site not specified Qualifiers: Weeks of gestation: unspecified Qualified Code(s): Z34.90 - Encounter for supervision of normal , unspecified, unspecified trimester - Discharge Information *PRESCRIPTION DRUG MONITORING PROGRAM REVIEWED*: No *COPY OF PRESCRIPTION DRUG MONITORING REPORT IN PATIENT OVIDIO: No
[2018-06-13] MEDS ORDERED: Simethicone 80 MG Tab.Chew PO SCH (13:00)
[2018-06-13 13:55] LABS: ANION GAP 13.3; CHLORIDE,CL 105 mmol/L (101-111); SODIUM,NA 134 mmol/L (135-145)
--- NOTE | 2018-06-13 15:04 | OBOUT ---
DATE: 06/13/2018 DATE AND TIME OF NST: Date: 06/13/2018. Time: Approximately 11:30 to 11:50. REASON FOR NST: 1. Intrauterine , questionable dates, 32 weeks based on ultrasound today. 2. No care. 3. Abdominal and back pain. 4. Contraction suspected with cervical dilation. 5. Previous x2, requests repeat low transverse . 6. Hepatitis C positive. 7. History of asthma. 8. History of methamphetamines and opiate abuse, admitted by patient in the last 1 to 3 days. 9. GBS unknown. NST INTERPRETATION: During this time period, heart tone baseline is approximately 145 to 150 and there are no accelerations during this time period with a deceleration into the 90s to 100s lasting approximately 2 to 3 minutes. Tocometer, difficult to read contractions. ASSESSMENT/PLAN: 1. Non-stress test - nonreassuring, nonreactive. 2. Tocometer without contractions. PLAN: After this was noted, I was called, presented. Ultrasound was being done at that time with best dates being 32 weeks based on measurements with XANDER in the 17 range. Vertex presentation with anterior fundal placenta. Subsequently, the patient was started on IV fluid bolus, followed closely. The patient's blood pressure was noted to be on the lower end of normal with some tachycardia. With IV fluid bolus, this returned and recovered. The patient continued complaining of abdominal and back pain. Did receive some Narcan in the ER, 0.4 mg. Evaluation after the ultrasound was done did reveal vaginal exam to be 1.5 cm, 75% effaced, negative 1 to negative 2 station, vertex suspected, bag of water felt to be intact. Due to nonreassuring status, abdominal and back pains with suspected labor/contractions, and noted hypotension with labs revealing hemoglobin low in the 9 range, I did discuss with the patient concerns with status and recommendation to proceed with repeat low transverse . I did discuss with her and her cousin, who was present, risks, benefits, alternatives, and complications of including, but not limited to, infection, bleeding, damage to internal organs such as bowel, bladder, tubes, uterus, ovaries, and sometimes fetus rarely needing a blood transfusion or further surgery and rarer maternal or . She understands, agrees, and wished to proceed. Verbal and written consent obtained. Questions were answered. In addition, type and crossmatch for 2 units will be called for due to her hydration status being significantly dehydrated suspected and her hemoglobin is probably much lower than it actually is on the reading. In addition, we will proceed to the OR as soon as crew is ready and available. At the current time of dictation, heart tones, there has been improvement in terms of variability with a baseline around the 130s. Tocometer does reveal potential for contractions with the patient wincing and crying in pain when she has these back and abdominal pains. Due to this, the contractions, cervical change, nonreassuring status, we will proceed to the OR for repeat low transverse . NICU was called during initial evaluation and dispatched to present for the baby, and at this point in time, we will proceed to the OR as soon as crew is ready and available. [facility] /[id number] JYOTSNA
--- NOTE | 2018-06-13 15:52 | OR ---
DATE: 06/13/2018 PREOPERATIVE DIAGNOSES: 1. Intrauterine at 32 weeks, confirmed with ultrasound today. 2. Nonreassuring status. 3. Back and abdominal pain. 4. Contractions suspected upon admission with vaginal exam to be 1.5 cm- suspected cervical change. 5. History of vaginal bleeding over the last couple of days, only with wiping. 6. Positive methamphetamine and opiate admitted use within the last 1-3 days per patient. 7. Group B Streptococcus unknown. 8. Hepatitis C positive status. 9. History of asthma. 10.Two previous C-sections, requests repeat low transverse section. 11.Urinary tract infection suspected with increased white cell count with urinalysis as well as nitrite positive. 12.Anemia of with hemoglobin of 9.7. 13.G3, P2-0-0-2. POSTOPERATIVE DIAGNOSES: 1. Intrauterine at 32 weeks, confirmed with ultrasound today, delivered. 2. Nonreassuring status. 3. Back and abdominal pain. 4. Contractions suspected upon admission with vaginal exam to be 1.5 cm- suspected cervical change. 5. History of vaginal bleeding over the last couple of days, only with wiping. 6. Positive methamphetamine and opiate admitted use within the last 1-3 days per patient. 7. Group B Streptococcus unknown. 8. Hepatitis C positive status. 9. History of asthma. 10.Two previous C-sections, requests repeat low transverse section. 11.Urinary tract infection suspected with increased white cell count with urinalysis as well as nitrite positive. 12.Anemia of with hemoglobin of 9.7. 13.G3, P2-0-0-2. 14.Approximately 3 minutes after delivery of infant, asystole developed with desaturations requiring at least 4 minutes of cardiopulmonary resuscitation and epinephrine to have return of spontaneous circulation (ROSC). 15.Placental abruption suspected with old blood noted with delivery of placenta that was clotted and left anterior uterus 2 cm region with couvelaire appearance . 16.Thin lower uterine segment/window. PROCEDURE PERFORMED: Repeat low transverse section. ANESTHESIA: Attempted spinal anesthesia unsuccessful and general anesthesia was used. ESTIMATED BLOOD LOSS: 600 mL. INTRAVENOUS FLUIDS: 1000 mL of lactated Ringer's and 100 mL of Pitocin. URINE OUTPUT: 400 mL clear yellow. START TIME: 1307 hours. UTERINE INCISION: 1307 hours. DELIVERY TIME: 1307 hours. ASYSTOLE AND CPR TIME: 1310 hours was when asystole was noted and CPR started. STOP TIME for surgery: Was 1326 hours. FINDINGS: Male. scores of 3 and 4. Very thin lower uterine segment/window and placental abruption suspected with old blood clot noted with delivery of the placenta and left anterior uterus 2cm region with couelaire appearance. Weight of the infant is pending. SUMMARY OF EVENTS: The patient was initially evaluated in the clinic today with a history of questionable vaginal spotting over the last couple of days, only with wiping, none noted today with no care with the patient suspected being around 35 weeks based on her dates. She did have some [place] M[place] contractions over the last couple of days, but none during evaluation. No care labs drawn and done with GBS done. Vaginal exam was deferred as no ultrasound had been done at that time. As the patient was checking out at the checkout desk after her labs were done, she started becoming diaphoretic, pale, and feeling abdominal/back pain. She was immediately wheeled over to the emergency room where she was evaluated, IV was started, and monitoring ensued, which revealed nonreassuring status with heart tones in the 90s for approximately 3 minutes and then up to the more normal range, but with minimal variability. Stat ultrasound was called for, done, did reveal her to have an anterior fundal placenta. Vaginal exam revealed to be 1.5 cm. After that was done and dating revealed her to be 32 weeks with an XANDER in the 17 range. While this was being done, the patient started complaining of worsening back and abdominal pain. Continued monitoring was noted and variability did improve minimally. Because of her history, back and abdominal pain as well as deceleration, recommendation to proceed with repeat low transverse section was made. Proper consent was obtained. The patient was brought to the operating room as soon as OR was ready. DESCRIPTION OF PROCEDURE IN DETAIL: After proper consent was obtained, the patient was brought back to the operating room where spinal anesthetic was administered. Brunner was placed in preop under sterile conditions. Abdomen was prepped and draped in the normal sterile fashion using Betadine for timeliness. Testing thereafter did reveal the patient feeling pain, therefore, general anesthesia was recommended. Once BOILER TENDERS SUPERVISOR recommended incision could be made, a skin incision was made on the lower abdomen in transverse Pfannenstiel- type fashion. This was carried down to the fascia which was scored in midline. Subcutaneous tissue was raked laterally bluntly and fascial incision was extended superiorly and inferiorly and laterally with blunt technique. Rectus and pyramidalis muscles were dissected from the fascia using blunt technique. The rectus muscles were then in midline with blunt technique. Abdominal cavity was entered in blunt technique and the incision was extended superiorly and inferiorly with blunt technique. Carlitos O large retractor was then introduced and used. Vesicouterine peritoneum was identified and incised in transverse fashion with Metzenbaum scissors and bladder flap was made digitally. A curvilinear incision was made on the lower uterine segment at 1307 hours. Uterus was entered sharply. Clear fluid returned. The uterine incision was then extended in a transverse fashion using blunt technique. Prior to the uterine incision, there was noted to be a very thin lower uterine segment/window and could see hair through this window. After the uterine incision was extended in transverse fashion, vertex was then delivered through the incision and abdomen followed by rest of the without difficulty. Mouth and nares were suctioned. Cord was doubly clamped and cut, and was brought to team for resuscitation with Dr. Cruz. Then, approximately 10 mL cord blood was obtained for labs. Placenta was then delivered with gentle cord traction and fundal massage and delivered quickly with an approximately 250 mL clot behind the placenta that was old and dark colored. Left anterior uterus had 2 cm region that appeared like a couvelaire uterus. Uterine cavity was then cleared of all blood clots and debris with lap sponge. Caballero clamps were used to grasp the uterine incision and this was closed in a running locked fashion and tied at lateral margin with 1-0 Vicryl. During this closure, asystole was noted and CPR ensued. Please see BOILER TENDERS SUPERVISOR's notes. Approximately over 4 minutes of CPR was entailed with the patient receiving a dose of epinephrine. Return of spontaneous circulation was then noted. First inspection of the uterine incision revealed hemostasis. Carlitos O retractor was then removed, and paracolic gutters were then cleared of all blood clots and debris with lap sponge. Anterior cul-de-sac was then irrigated copiously and all blood clots and debris removed. Second and final inspection of the uterine incision and anterior cul-de-sac revealed hemostasis. The rectus muscles were then reapproximated in midline with [id number] stitch using 1-0 Vicryl. Subfascial tissues were found to be hemostatic. Fascia was closed in a running fashion and tied at lateral margins with 0 looped PDS. Subcutaneous tissue was irrigated copiously. Hemostasis was reassured. Skin was reapproximated with medium marlene. Sterile Aquacel dressing was applied. The uterine fundus was firm and massaged at conclusion of the case at -2 below the umbilicus. Complications noted as above. Sponge, lap, and needle counts were correct. The patient received 2 g of Ancef preoperatively, Pitocin per protocol, and at the conclusion of case, Carol Abbasi, ER provider, and myself were involved in transferring the patient to a higher level care via [facility]. Please see BOILER TENDERS SUPERVISOR notes and her notes as well. I did discuss the case with Dr. Darshan Keating who has agreed graciously to accept the patient. Please see their notes for further details. [facility] /[id number] [facility]
--- NOTE | 2018-06-13 16:06 | HP ---
ER NOTE HISTORY OF PRESENT ILLNESS: Camryn Navarro is a 28-year-old, G3, P2-0-0-2 intrauterine at 32 weeks based on ultrasound done in the emergency room today that was wheeled over in a wheelchair from the clinic after having feelings of increased abdomen and back pain with feeling faint and having some sweatiness/diaphoresis. The patient describes since being evaluated in the clinic where she was asymptomatic other than having 2 days of vaginal spotting only with wiping and resolved upon evaluation in the clinic, she started having back and abdominal pain associated with diaphoresis when she was checking out at the clinic. She subsequent wheeled over to the ER, evaluated there. Carol Abbasi started IV fluids per my instructions and NST/monitoring was done. I was subsequently called over to the ER as heart tones were in the 90s for approximately 3 minutes and then up in the more normal range with minimal variability thereafter. Upon my presentation, ultrasound was there; heart tones were in the normal range, but with minimal variability. Tocometer revealed no obvious evidence of contractions. The patient did receive 0.4 mg of Narcan there as well. Records were called for reviewed and supplemented by patient history. Please see EPIC notes in regard to this with H and P updated through there with exam done there earlier today. Exam changes including patient in distress with some pain that seems to come and go coinciding with suspected contractions in the back and front abdominal region. No spotting or bleeding elicited. Lungs were clear to auscultation bilaterally. No increased work of breathing. Vitals did reveal blood pressure 90s/50s. IV fluids were given. Heart rate during my evaluation was between 60 and 70. heart tones prior to the ultrasound did reveal some minimal variability which was improving. Subsequently ultrasound was done, reviewed by my eyes, XANDER around the 17 range, vertex presentation. Fundal anterior placenta noted and measured around 32 weeks. After that was completed, vaginal exam reveals to be 1.5 cm, approximately 75% effaced, negative 1 to negative 2 station, vertex suspected. No peripheral edema. Deep tendon reflexes 2 to 3/4 bilaterally and symmetric in the lower extremities. Mood and affect congruent. Judgment and insight intact. SKIN without any cyanosis, clubbing, or jaundice. LABORATORY DATA: From the clinic did reveal a white cell count 13.2 with a hemoglobin 9.7 and platelets within normal range. Other labs are currently pending. ASSESSMENT AND PLAN: Intrauterine 32 weeks by ultrasound today. Nonreassuring status. IV fluid resuscitation was given, increase in variability was noted, but still concerning and with patient's increasing back and abdominal pain, as well as suspected cervical change, suspect in labor with concerning abdominal and back pain. Please see NST notes in regard to this. At that time, a decision was made to proceed to the OR. I did discuss with the patient risks, benefits, alternative, and complication of including, but not limited to, infection, bleeding, damage to internal organs such as bowel, bladder, tubes, uterus, ovaries, and sometimes fetus rarely needing a blood transfusion or further surgery and rarer maternal or . She understands and agrees and wishes to proceed. Verbal and written consent were obtained. Questions were answered. Proceed to the OR as soon as the crew is ready and available. Please see operative note and NST notes for further details as well. [facility] /[id number]
[2018-06-13] MEDS ORDERED: Oxytocin/Normal Saline 30 UNIT/500 ML BAG IV ONE (16:20)
[2018-06-13] MEDS ORDERED: Morphine PF 1 MG/ML Amp ITHECAL ONE (16:30)
[2018-06-13] MEDS ORDERED: Succinylcholine 200 MG/10 ML MDV IV ONE (16:30)
[2018-06-13] MEDS ORDERED: Sodium Chloride 0.9% 1,000 ML IV ONE (16:30)
[2018-06-13] MEDS ORDERED: EPINEPHrine 1:10,000 1 MG/10 ML Syringe IV ONE (16:30)
[2018-06-13] MEDS ORDERED: Propofol 200 MG/20 ML SDV IV ONE (16:30)
[2018-06-13] MEDS ORDERED: Ondansetron 4 MG/2 ML SDV IV ONE (16:30)
--- NOTE | 2018-06-14 08:42 | DISCH ---
ADMISSION DIAGNOSES: 1. Intrauterine at 32 weeks, confirmed with ultrasound upon admission. 2. Nonreassuring status. 3. Back and abdominal pain, suspect contractions. 4. Contractions with cervical change, suspected labor. 5. History of vaginal bleeding over last couple days only with wiping. 6. History of methamphetamine and opiate use within the last 1 to 3 days. 7. Hep C positive. 8. History of asthma. 9. Two previous C-sections, request repeat low transverse section. 10.Urinary tract infection - suspected with increased white cell counts in the urine as well as nitrite positive. 11.Anemia of , hemoglobin 9.7. 12.GBS unknown, but obtained in the clinic today. 13.G3, P2-0-0-2. DISCHARGE DIAGNOSES: 1. Intrauterine at 32 weeks, confirmed by ultrasound upon admission. 2. Nonreassuring status. 3. Back and abdominal pain, suspect contractions. 4. Contractions with cervical change, suspected labor. 5. History of vaginal bleeding over last couple days only with wiping. 6. History of methamphetamine and opiate use within the last 1 to 3 days. 7. Hep C positive. 8. History of asthma. 9. Two previous C-sections, request repeat low transverse section. 10.Urinary tract infection - suspected with increased white cell counts in the urine as well as nitrite positive. 11.Anemia of , hemoglobin 9.7. 12.GBS unknown, but obtained in clinic today. 13.G3, P2-0-0-2. 14.Asystole with desaturation noted in the OR requiring CPR over 4 minutes with return of spontaneous circulation. One dose epinephrine was required. 15.Placental abruption suspected with old blood approximately 250 mL clot noted with delivery of the placenta. 16.Thin lower uterine segment/window, being able to see vertex/hair through it in the operating room. 17.Guarded status and transferred via [facility] to [facility] for further evaluation and management. HISTORY OF PRESENT ILLNESS: Please see H and P. SUMMARY OF HOSPITAL COURSE: The patient was initially evaluated over in the clinic, was asymptomatic at that time and then subsequently had symptoms of abdominal and back pain and diaphoresis and sent to the ER for evaluation and treatment and from there went to the operating room for repeat low transverse C- section. She had a stat ultrasound done revealing a 32 weeks fundal anterior placenta, 1.5 cm cervical dilation with cephalic presentation. She was around 32 weeks with an XANDER around 17. She was given 0.4 mg of Narcan in the ER due to her symptoms. With serial evaluations while the ultrasound was being done, the patient's pain had been worsening, she was wincing more in pain during this time period. IV fluids were given and she was subsequently brought to the OR. Please see OR note for further details. She underwent a repeat low transverse C - section. Initially tried for spinal anesthetic, which was unsuccessful due to the patient feeling pain and then went under general anesthesia with Betadine scrub due to timeliness. She had an EBL of 600 mL, IV fluids of 1000 LR, and 100 mL of Pitocin with urine output of 400 mL and clear yellow with start time at 1307, delivery time at 1307 with asystole developing at 1310 hours and stop time at 1326 with over 4 minutes of CPR given. This yielded a male with score of 3 and 4 and weight of 4 pounds even. After the surgery was completed and return of spontaneous circulation was noted during the surgery, decision was made to transfer to higher level of care. [employer] crew was involved as well as Carol Abbasi, ER provider. I did discuss this case with Dr. Darshan Keating who graciously accepted and agreed in transfer. Please see those notes as well as [employer]s notes for further details. Over 30 minutes was spent in discharge evaluation and management of this patient. CONDITION ON DISCHARGE COMPARED TO CONDITION ON ADMISSION: Guarded. DISCHARGE INSTRUCTIONS: Per [facility] crew and transfer crew. [facility] /[id number] MTDD
[2018-06-14] MEDS ORDERED: Prenatal Multivitamin with Calcium/Folic Acid/Iron Tab PO SCH (09:00)
== END 2018-06-13 14:00 | DRG 786 ==
LOC: DL.ED 11:23 → DL.OB 12:16 → OBSVTOIN 13:07
PROVIDERS: ADMIT Family Medicine; ATTEND Family Medicine
PROC: 10D00Z1 Extraction of Products of Conception, Low, Open Approach (ICD-10-PCS; principal; 2018-06-13)
PROC: 4A1HXCZ Monitoring of Products of Conception, Cardiac Rate, External Approach (ICD-10-PCS; 2018-06-13)
DX: O34.211 Maternal care for low transverse scar from previous cesarean delivery (principal); O75.3 Other infection during labor; O98.42 Viral hepatitis complicating childbirth; N39.0 Urinary tract infection, site not specified; O99.334 Smoking (tobacco) complicating childbirth; F17.210 Nicotine dependence, cigarettes, uncomplicated; B18.2 Chronic viral hepatitis C; O76 Abnormality in fetal heart rate and rhythm complicating labor and delivery; O26.53 Maternal hypotension syndrome, third trimester; O99.02 Anemia complicating childbirth; D64.9 Anemia, unspecified; Z3A.32 32 weeks gestation of pregnancy; Z37.0 Single live birth
CPT/HCPCS: 01961; 36415; 71045; 76815; 80053; 84484; 85025; 85379; 85610; 86850; 86900; 86901; 86920; 86922; 92950; 96361; 96372; 96374; 99284; 99291-25; A9270-GY; J0171; J0330; J0690; J2274; J2310; J2405; J2590; J2704; J7030; J7120

== ENCOUNTER 2019-09-07 00:56 | Emergency (ER) | payer MEDICAID, OTHER ==
[2019-09-07 01:06] VITALS: BP 129/87; PULSE 101
--- NOTE | 2019-09-07 01:07 | EDM.PDOC ---
ED HPI GENERAL MEDICAL PROBLEM - General Chief Complaint: Skin Complaint Stated Complaint: RASH Time Seen by Provider: 09/07/19 01:06 Source of Information: Reports: Patient, RN, RN Notes Reviewed - History of Present Illness INITIAL COMMENTS - FREE TEXT/NARRATIVE: Patient presents to ER with complaint of rash to the arms, chest, and under the chin. She states the rash has been spreading. She states she feels it is sumac, or poison kassandra or poison oak. She states she was in the [place] her home earlier in the week. Patient states her daughter also had a rash. Patient states she has not used anything for the rash as she has not been home. States she did swim in the [place] today which she feels may be made it worse. Patient states she was also called by [facility] and states she was told that her boyfriend was positive for chlamydia. Patient states she was to follow-up at the clinic, but missed her appointment. Patient is requesting to be treated for chlamydia at this time. Onset: Gradual Right Upper Arm Pain Score (Numeric/FACES): 4 - Related Data Allergies Allergy/AdvReac Type Severity Reaction Status Date / Time No Known Allergies Allergy Verified 09/07/19 01:21 Home Meds: Home Meds Albuterol Sulfate [Albuterol Sulfate Hfa] 2 inh INH ASDIRECTED PRN 09/07/19 [History] FLUoxetine [PROzac] 10 mg PO DAILY 09/07/19 [History] hydrOXYzine HCL [hydrOXYzine] 50 mg PO BEDTIME PRN 09/07/19 [History] Past Medical History HEENT History: Reports: None Cardiovascular History: Reports: None Respiratory History: Reports: Asthma Gastrointestinal History: Reports: GERD Genitourinary History: Reports: UTI, Recurrent CLINICAL PHLEBOTOMIST History: Reports: Polycystic Ovaries, Musculoskeletal History: Reports: Back Pain, Chronic Neurological History: Reports: None Psychiatric History: Reports: Depression, Suicide Attempt Endocrine/Metabolic History: Reports: None Hematologic History: Reports: Anemia, Other (See Below) Other Hematologic History: + hep C Immunologic History: Reports: HIV Oncologic (Cancer) History: Reports: None Dermatologic History: Reports: Other (See Below) Other Dermatologic History: track [place] all over from IV drug use - Infectious Disease History Infectious Disease History: Reports: Hepatitis C - Past Surgical History Head Surgeries/Procedures: Reports: None HEENT Surgical History: Reports: Oral Surgery Female Surgical History: Reports: Section Social & Family History - Family History Family Medical History: Noncontributory - Tobacco Use Smoking Status *Q: Current Every Day Smoker Years of Tobacco use: 19 Packs/Tins Daily: 0.5 - Caffeine Use Caffeine Use: Reports: None - Alcohol Use Date of Last Drink: 09/07/19 - Recreational Drug Use Recreational Drug Use: No - Living Situation & Occupation Living situation: Reports: with Family ED ROS GENERAL - Review of Systems Review Of Systems: Comprehensive ROS is negative, except as noted in HPI. ED EXAM, SKIN/RASH Exam: See Below Exam Limited By: No Limitations General Appearance: Alert, WD/WN, Anxious, Moderate Distress Eye Exam: Bilateral Eye: EOMI, Normal Inspection Ears: Normal External Exam, Hearing Grossly Normal Nose: Normal Inspection Throat/Mouth: Normal Inspection, Normal Voice, No Airway Compromise Head: Atraumatic, Normocephalic Neck: Normal Inspection Respiratory/Chest: No Respiratory Distress, Lungs Clear, Normal Breath Sounds, No Accessory Muscle Use, Chest Non-Tender Cardiovascular: Normal Peripheral Pulses, Regular Rate, Rhythm, No Edema, No Gallop, No JVD, No Murmur, No Rub GI/Abdominal: Normal Bowel Sounds, Soft, Non-Tender (Female) Exam: Deferred Rectal (Female) Exam: Deferred Back Exam: Normal Inspection, Full Range of Motion, NT Extremities: Normal Inspection, Normal Range of Motion, Non-Tender, No Pedal Edema, Normal Capillary Refill Neurological: Alert, Oriented, CN II-XII Intact, Normal Cognition, Normal Reflexes, No Motor/Sensory Deficits Psychiatric: Normal Affect, Normal Mood, Anxious Skin: Warm, Dry Location, Skin: Face, Neck, Chest, Upper Extremity, Right, Upper Extremity, Left Characteristics: Patchy, Vesicular, Bullous, Erythematous Associated features: Tenderness, Inflammation, Weeping Lymphatic: No Adenopathy Course - Vital Signs Last Recorded V/S: Last Vital Signs Temp 97.3 F 09/07/19 01:04 Pulse 101 H 09/07/19 01:04 Resp 21 H 09/07/19 01:04 BP 129/87 09/07/19 01:04 Pulse Ox 98 09/07/19 01:04 - Orders/Labs/Meds Orders: Active Orders 24 hr Category Date Time Status CHLAMYDIA/GC NUCLEIC ACID AMP [MREF] Stat Lab 09/07/19 01:25 Stop Req DRUG SCREEN URINE BIORAD [URCHEM] Stat Lab 09/07/19 01:25 Stop Req HCG QUALITATIVE,URINE [URCHEM] Stat Lab 09/07/19 01:25 Stop Req UA RFX KELLY AND CULT IF INDIC [URIN] Stat Lab 09/07/19 01:25 Stop Req Meds: Medications Discontinued Medications Generic Name Dose Route Start Last Admin Trade Name Romulo PRN Reason Stop Dose Admin Azithromycin 1,000 mg 09/07/19 01:26 Zithromax PO 09/07/19 01:27 ONETIME ONE Ceftriaxone Sodium 250 mg/ 0 mg 09/07/19 01:26 Lidocaine HCl 0.9 ml IM 09/07/19 01:27 ONETIME ONE Triamcinolone Acetonide 40 mg 09/07/19 01:11 09/07/19 01:18 Kenalog-40 IM 09/07/19 01:12 40 mg ONETIME ONE Administration Triamcinolone Acetonide 15 gm 09/07/19 01:14 09/07/19 01:22 Triamcinolone Acetonide 0.1% [facility] 09/07/19 01:15 1 dose ONETIME ONE Administration - Re-Assessments/Exams Free Text/Narrative Re-Assessment/Exam: 09/07/19 01:31 Patient decided she did not want to give a urine sample, and states she does want to follow-up with [facility] regarding the STI, and states she will get the medications there. Departure - Departure Time of Disposition: :31 Disposition: Home, Self-Care 01 Condition: Fair Clinical Impression: Contact dermatitis due to poison kassandra, Contact dermatitis due to poison sumac - Discharge Information *PRESCRIPTION DRUG MONITORING PROGRAM REVIEWED*: No *COPY OF PRESCRIPTION DRUG MONITORING REPORT IN PATIENT OVIDIO: No Instructions: Poison Kassandra Dermatitis, [id number], Contact Dermatitis, [id number], Poison [place] Dermatitis, [id number] Forms: ED Department Discharge Additional Instructions: Use over the counter hydrocortisone cream to affected areas until healed Follow up with your primary care facility regarding STI May use Benadryl as directed Sepsis Event Note (ED) - Evaluation Sepsis Screening Result: No Definite Risk - Focused Exam Vital Signs: Vital Signs Temp Pulse Resp BP Pulse Ox 09/07/19 01:04 97.3 F 101 H 21 H 129/87 98 - My Orders Last 24 Hours: My Active Orders 09/07/19 01:25 CHLAMYDIA/GC NUCLEIC ACID AMP [MREF] Stat DRUG SCREEN URINE BIORAD [URCHEM] Stat HCG QUALITATIVE,URINE [URCHEM] Stat UA RFX KELLY AND CULT IF INDIC [URIN] Stat - Assessment/Plan Last 24 Hours: My Active Orders 09/07/19 01:25 CHLAMYDIA/GC NUCLEIC ACID AMP [MREF] Stat DRUG SCREEN URINE BIORAD [URCHEM] Stat HCG QUALITATIVE,URINE [URCHEM] Stat UA RFX KELLY AND CULT IF INDIC [URIN] Stat
[2019-09-07] MEDS ORDERED: Triamcinolone Acetonide 40 MG/ML 1 ML MDV IM ONE (01:11)
[2019-09-07] MEDS ORDERED: Triamcinolone Acetonide 0.1% Crm 15 GM Tube TOP ONE (01:14)
[2019-09-07] MEDS ORDERED: Azithromycin 250 MG Tab PO ONE (01:26)
[2019-09-07] MEDS ORDERED: cefTRIAXone 250 MG, Lidocaine 1% 0.9 ML IM ONE ×2 (01:26)
== END 2019-09-07 01:33 | disposition home or self-care (01) ==
LOC: DL.ED 00:56
DX: L23.7 Allergic contact dermatitis due to plants, except food (principal); F32.9 Major depressive disorder, single episode, unspecified; F17.210 Nicotine dependence, cigarettes, uncomplicated; Z79.899 Other long term (current) drug therapy
CPT/HCPCS: 96372; 99282; A9270; J3301

== ENCOUNTER 2020-12-03 12:05 | Emergency (ER) | payer MEDICAID ==
[2020-12-03 11:56] VITALS: BP 152/109; PULSE 98
[2020-12-03] MEDS ORDERED: Sodium Chloride 0.9% 1,000 ML IV ONE (12:11)
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
[2020-12-03] MEDS ORDERED: Albuterol/Ipratropium 3.0-0.5 MG/3 ML Neb Soln NEB ONE (12:49)
[2020-12-03 13:22] LABS: ANION GAP 10.7 mEq/L (7-13); CHLORIDE,CL 100 mmol/L (98-107); SODIUM,NA 136 mmol/L (136-145)
[2020-12-03 13:39] LABS: AMPHETAMINES,URINE NEGATIVE (NEGATIVE); BARBITURATES,URINE NEGATIVE (NEGATIVE); BENZODIAZEPINE,URINE NEGATIVE (NEGATIVE); MDMA (ECSTASY), URINE NEGATIVE (NEGATIVE); METHADONE,URINE NEGATIVE (NEGATIVE); METHAMPHETAMINES,URINE POSITIVE (NEGATIVE); OPIATES,URINE NEGATIVE (NEGATIVE); OXYCODONE,URINE POSITIVE (NEGATIVE); PHENCYCLIDINE,URINE NEGATIVE (NEGATIVE); TCA,URINE NEGATIVE (NEGATIVE)
[2020-12-03] MEDS ORDERED: cefTRIAXone 1 GM in Sodium Chloride 0.9% 50 ML IV ONE (13:40)
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
[2020-12-03] MEDS: metroNIDAZOLE/Normal Saline 500 MG in Premix Bag 100 BAG IV ONE ×2 (15:03→15:16)
[2020-12-03] MEDS ORDERED: metroNIDAZOLE 250 MG Tab PO ONE (15:12)
[2020-12-03] MEDS ORDERED: chlordiazePOXIDE 25 MG Cap PO ONE (15:34)
== END 2020-12-03 16:07 | disposition other institution (70) ==
LOC: DL.ED 12:05
DX: U07.1 COVID-19 (principal); N39.0 Urinary tract infection, site not specified; N76.0 Acute vaginitis; F10.230 Alcohol dependence with withdrawal, uncomplicated; B96.89 Other specified bacterial agents as the cause of diseases classified elsewhere; F15.10 Other stimulant abuse, uncomplicated; F12.10 Cannabis abuse, uncomplicated; Y90.5 Blood alcohol level of 100-119 mg/100 ml
CPT/HCPCS: 36415; 73100; 73130; 80053; 80305; 80307; 81001; 81025; 85025; 87086; 87088; 87186; 87491; 87563; 87591; 87635; 96374; 99285; A9270; J0696; J7030; J3490; U0002

== ENCOUNTER 2021-03-31 00:53 | Emergency (ER) | payer MEDICAID ==
[2021-03-31 01:45] VITALS: BP 137/97; PULSE 118
[2021-03-31 01:48] LABS: AMPHETAMINES,URINE POSITIVE (NEGATIVE); BARBITURATES,URINE NEGATIVE (NEGATIVE); BENZODIAZEPINE,URINE NEGATIVE (NEGATIVE); MDMA (ECSTASY), URINE POSITIVE (NEGATIVE); METHADONE,URINE NEGATIVE (NEGATIVE); METHAMPHETAMINES,URINE POSITIVE (NEGATIVE); OPIATES,URINE NEGATIVE (NEGATIVE); OXYCODONE,URINE NEGATIVE (NEGATIVE); PHENCYCLIDINE,URINE NEGATIVE (NEGATIVE); TCA,URINE NEGATIVE (NEGATIVE)
[2021-03-31 01:57] LABS: ANION GAP 18.8 mEq/L (7-13); CHLORIDE,CL 102 mmol/L (98-107); SODIUM,NA 141 mmol/L (136-145)
== END 2021-03-31 01:50 | disposition left against medical advice (07) ==
LOC: DL.ED 00:53
DX: L50.9 Urticaria, unspecified (principal); Z53.21 Procedure and treatment not carried out due to patient leaving prior to being seen by health care provider
CPT/HCPCS: 36415; 80053; 80305-QW; 80307; 81001; 82150; 83690; 84703; 85025; 87086; 87088; 87186; 87491; 87563; 87591